=== PATIENT | female | born 1945 | race African-American/Black ===

== ENCOUNTER 2020-01-04 12:28 | Emergency (ER) | payer MEDICARE ==
[~2020-01-04] VITALS: Ht 167.6 cm; Wt 80.0 kg
[2020-01-04] MEDS ORDERED: SODIUM CHLORIDE 0.9% 1,000 ML IV ONE (15:09)
[2020-01-04] MEDS ORDERED: FAMOTIDINE 20MG/2ML VIAL IV STA (15:09)
[2020-01-04 16:04] LABS: BASOPHILS % 1.9 % (0.0-2.0); HEMATOCRIT. 42.2 % (36.0-48.0); HEMOGLOBIN. 14.6 g/dL (12.0-16.0); LYMPHOCYTES % 42.1 % (20.0-50.0); MEAN CORPUSCULAR HEMOGLOBIN 27.3 pg (28.0-32.0); MEAN CORPUSCULAR VOLUME 79.2 fL (81.0-99.0); MEAN PLATELET VOLUME 9.4 fl (7.4-10.4); PLATELET 197 x1000/uL (130-400); RED BLOOD CELL COUNT 5.34 mill/uL (4.2-5.4); RED CELL DISTRIBUTION WIDTH 13.6 % (11.6-14.6)
[2020-01-04 16:11] LABS: CHLORIDE 99 mEq/L (98-107)
[2020-01-04 16:15] LABS: PROTHROMBIN TIME 10.7 sec (9.6-11.0)
[2020-01-04 17:32] LABS: CLARITY URINE CLOUDY (CLEAR); COLOR URINE YELLOW (YELLOW); KETONES URINE NEGATIVE (NEGATIVE); LEUKOCYTE ESTERASE URINE 2+ (NEGATIVE); NITRITE URINE NEGATIVE (NEGATIVE); OCCULT BLOOD URINE NEGATIVE (NEGATIVE); PH URINE 6.5 (4.5-8.0); PROTEIN URINE NEGATIVE (NEGATIVE); SPECIFIC GRAVITY URINE 1.014 (1.005-1.030); UROBILINOGEN URINE 0.2 E.U./dL (0.2-1.0)
[2020-01-04] MEDS ORDERED: CEFTRIAXONE 1 G PREMIX 50 ML IV NR (18:30)
[2020-01-04 19:44] VITALS: BP 149/86
[2020-01-04] MEDS ORDERED: IOHEXOL-300 100 ML BOTTLE ONE (23:20)
== END 2020-01-04 20:05 | disposition home or self-care (01) ==
LOC: ER 12:28
DX: K29.70 Gastritis, unspecified, without bleeding (principal); N39.0 Urinary tract infection, site not specified; E11.65 Type 2 diabetes mellitus with hyperglycemia; I10 Essential (primary) hypertension; E78.00 Pure hypercholesterolemia, unspecified
CPT/HCPCS: 36415; 74177; 80053; 81003; 83605; 83690; 85025; 85610; 93005; 96361; 96365; 96375; 99285; J0696; J3490; J7030; Q9967